=== PATIENT | female | born 1965 | race Caucasian/White ===

== ENCOUNTER 2019-03-19 21:10 | Emergency (ER) | payer OTHER ==
[2019-03-19 21:27] VITALS: BP 159/91; PULSE 94; TEMP 98.7; BMI 31.1
--- NOTE | 2019-03-19 22:44 | PDOC ---
Documentation entered by Brennan Ferris SCRIBE, acting as scribe for Taisha Bermudez MD. Taisha Bermudez MD: This documentation has been prepared by the Barrington martínez Xhesika, SCRIBE, under my direction and personally reviewed by me in its entirety. I confirm that the documentation accurately reflects all work, treatment, procedures, and medical decision making performed by me. History of Present Illness - General Chief Complaint: Edema Stated Complaint: RIGHT FACIAL SWELLING Time Seen by Provider: 03/19/19 21:20 History Source: Patient Exam Limitations: No Limitations - History of Present Illness Initial Comments: 03/19/19 22:05 The patient is a 53 year old female with a significant PMH of hypothyroidism and HTN who presents to the emergency department for R facial swelling and discomfort x 1week. Patient notes she thought the swelling was from a tooth impaction and was seen by her dentist today. Diagnostic work-up, including x- ray was reportedly negative for pathology but her dentist prescribed amoxicillin course for possible root canal infection. Pt notes her swelling is still present, thought she might have developed mumps, prompting her arrival to the ED. The patient denies ear pain, difficulty swallowing/ eating. Denies jaw pain, chest pain, shortness of breath, headache, dizziness. Denies fever, chills, cough, nausea, vomiting, diarrhea and constipation. Allergies: NKDA Past History - Past Medical History Allergies/Adverse Reactions: Allergies Allergy/AdvReac Type Severity Reaction Status Date / Time No Known Allergies Allergy Unverified 03/19/19 21:24 Home Medications: Ambulatory Orders Levothyroxine Sodium [Synthroid] 0 mcg PO DAILY 03/19/19 Lisinopril 10 mg PO DAILY 03/19/19 Montelukast Sodium [Singulair] 10 mg PO DAILY 03/19/19 Paroxetine HCl [Paxil] 0 mg PO DAILY 03/19/19 COPD: No HTN: Yes Seizures: Yes (Hypothyroid) - Psycho Social/Smoking Cessation Hx Smoking History: Never smoked Hx Alcohol Use: Yes Drug/Substance Use Hx: No Review of Systems - Review of Systems Able to Perform ROS?: Yes Comments:: 03/19/19 22:06 GENERAL/CONSTITUTIONAL: No fever or chills. No weakness. +subjective fevers HEAD, EYES, EARS, NOSE AND THROAT: No change in vision. No ear pain or discharge. No sore throat. +R facial swelling and discomfort. CARDIOVASCULAR: No chest pain or shortness of breath. RESPIRATORY: No cough, wheezing, or hemoptysis. GASTROINTESTINAL: No nausea, vomiting, diarrhea or constipation. GENITOURINARY: No dysuria, frequency, or change in urination. MUSCULOSKELETAL: No joint or muscle swelling or pain. No neck or back pain. SKIN: No rash NEUROLOGIC: No headache, vertigo, loss of consciousness, or change in strength/ sensation. ENDOCRINE: No increased thirst. No abnormal weight change. HEMATOLOGIC/LYMPHATIC: No anemia, easy bleeding, or history of blood clots. ALLERGIC/IMMUNOLOGIC: No hives or skin allergy. *Physical Exam - Vital Signs Last Vital Signs Temp Pulse Resp BP Pulse Ox 98.7 F 94 H 18 159/91 97 03/19/19 21:13 03/19/19 21:13 03/19/19 21:13 03/19/19 21:13 03/19/19 21:13 - Physical Exam 03/19/19 22:07 GENERAL: Awake, alert, and fully oriented, in no acute distress HEAD: No signs of trauma FACE: +Right submandibular swelling and discomfort. EYES: PERRLA, EOMI, sclera anicteric, conjunctiva clear ENT: Auricles normal inspection, hearing grossly normal, nares patent, oropharynx clear without exudates. Moist mucosa NECK: Normal ROM, supple, no lymphadenopathy, JVD, or masses LUNGS: Breath sounds equal, clear to auscultation bilaterally. No wheezes, and no crackles HEART: Regular rate and rhythm, normal S1 and S2, no murmurs, rubs or gallops ABDOMEN: Soft, nontender, normoactive bowel sounds. No guarding, no rebound. No masses EXTREMITIES: Normal range of motion, no edema. No clubbing or cyanosis. No cords, erythema, or tenderness SKIN: Warm, Dry, normal turgor, no rashes or lesions noted. ED Progress Note - Progress Note Progress Note: As noted above, this 53-year-old woman with a history of HTN/hypothyroidism presents with swelling and mild discomfort for the last week in the right lower jaw area. She has no previous history of this type of swelling and specifically denies any previous salivary gland abnormalities. She had been seen by her dentist today as noted above and started on amoxicillin. She was worried about the swelling being a result of mumps : since she will be visiting relatives this week, she was concerned that she has a contagious infection. Exam as noted. Pt is afebrile. Area of edema and mild tenderness corresponds to the right submandibular gland. No discrete firm or fluctuant mass palpated. Clinical presentation consistent with right submandibular inflammation or mild infection, although a mass is still possible. Continuation of amoxicillin course is reasonable until she is evaluated by ENT. Dr Valenzuela referral information provided. Discharge - Discharge Information Problems reviewed: Yes Clinical Impression/Diagnosis: Submandibular gland inflammation Condition: Stable Disposition: HOME - Follow up/Referral Referrals: Akin Valenzuela MD [Staff Physician] - 3 days - Patient Discharge Instructions Additional Instructions: Continue amoxicillin as prescribed by your dentist Warm compresses to area of swelling Motrin/Aleve/Tylenol as needed for pain Use sour candies to increase salivary flow as discussed Return to ER if you have severe pain/high fever/severe swelling/difficulty swallowing Follow-up with ENT doctor () within the next 3 to 4 days Print Language: ARMENIAN - Post Discharge Activity
== END 2019-03-19 22:26 | disposition home or self-care (01) ==
LOC: FER 21:10
DX: K11.1 Hypertrophy of salivary gland (principal); I10 Essential (primary) hypertension; E03.9 Hypothyroidism, unspecified
CPT/HCPCS: 99281-25